=== PATIENT | female | born 1995 | race Caucasian/White ===

== ENCOUNTER 2022-06-05 13:51 | Outpatient (CLI) | payer MEDICAID, SELFPAY ==
--- NOTE | 2022-06-05 14:00 | CRLHL7_ITS ---
For Patients: As a result of the Century Cures Act, medical imaging exams and procedure reports are released immediately into your electronic medical record. You may view this report before your referring provider. If you have questions, please contact your health care provider. INDICATION: f/u renal pelves dilation COMPARISON: 03/27/2022 TECHNIQUE: Real time gonzales scale imaging of the fetus was performed as well as color Doppler and spectral Doppler analysis of the umbilical artery. FINDINGS: Sonographic imaging demonstrates a single living intrauterine gestation. Fetus demonstrates a regular cardiac rate of 137 beats per minute. Fetus has a breech position. The placenta lies posterior. Amniotic fluid volume appears normal and there is a single deepest vertical pocket: 3.5 cm. The estimated weight is 1558gm which lies at the 44th %. On the prior OB ultrasound exam dated 03/27/2022 the estimated weight was at the 26th%. BPD 84th percentile. HC 89th percentile. AC 61st percentile. FL 8th percentile. The HC/AC ratio measures 1.12 range (0.96-1.17). IMPRESSION: Progression of pelviectasis since the prior study, now measuring 8 millimeters on the left and 6 millimeters on the right. Greater than 7 millimeters in the 3rd trimester is considered abnormal. Normal amniotic fluid with single deepest pocket 3.5 cm. Sonographic gestational age 31 weeks 0 days and sonographic due date 08/07/2022. Sonographic age 6 days ahead of the clinical age. Estimated weight 44th percentile. Abdominal circumference 61st percentile. Dictated by Barak Myers MD @ 06/05/2022 3:08:34 PM (Electronically Signed)
== END 2022-06-05 13:52 | disposition home or self-care (01) ==
LOC: US 13:53
PROVIDERS: Visit Provider Registered Nurse
DX: Z34.03 Encounter for supervision of normal first pregnancy, third trimester (principal); Z3A.30 30 weeks gestation of pregnancy
CPT/HCPCS: 76815; 76816

== ENCOUNTER 2022-06-18 10:06 | Outpatient (CLI) | payer MEDICAID, SELFPAY ==
[2022-06-18 13:55] LABS: Amphetamine Screen Urine Negative (Negative); Barbiturate Screen Urine Negative (Negative); Benzodiazepines Screen Urine Negative (Negative); Cannabinoid Screen Urine Negative (Negative); Cocaine Screen Urine Negative (Negative); Methadone Screen Urine Negative (Negative); Methamphetamines Screen Urine Negative (Negative); Opiate Screen Urine Negative (Negative); Oxycodone Screen Urine Negative (Negative); Phencyclidine Screen Urine Negative (Negative)
== END 2022-06-18 10:07 | disposition home or self-care (01) ==
LOC: NFLDREF 10:34
PROVIDERS: Visit Provider Advanced Practice Midwife
DX: Z34.90 Encounter for supervision of normal pregnancy, unspecified, unspecified trimester (principal)
CPT/HCPCS: 80306

== ENCOUNTER 2022-07-16 10:28 | Outpatient (CLI) | payer MEDICAID, SELFPAY ==
[2022-07-17 11:37] LABS: Strep B DNA Probe NEGATIVE (Negative)
== END 2022-07-16 10:29 | disposition home or self-care (01) ==
LOC: NFLDREF 10:28
PROVIDERS: Visit Provider Advanced Practice Midwife
DX: Z34.93 Encounter for supervision of normal pregnancy, unspecified, third trimester (principal); Z3A.36 36 weeks gestation of pregnancy
CPT/HCPCS: 87081; 87653

== ENCOUNTER 2022-07-26 09:06 | Outpatient (CLI) | payer MEDICAID, SELFPAY ==
--- NOTE | 2022-07-26 09:15 | CRLHL7_ITS ---
For Patients: As a result of the Century Cures Act, medical imaging exams and procedure reports are released immediately into your electronic medical record. You may view this report before your referring provider. If you have questions, please contact your health care provider. INDICATION: GROWTH AND FLUID, RENAL PELVIS DILATION COMPARISON: 06/05/2022 TECHNIQUE: Real time gonzales scale imaging of the fetus was performed as well as color Doppler and spectral Doppler analysis of the umbilical artery. FINDINGS: Sonographic imaging demonstrates a single living intrauterine gestation. Fetus demonstrates a regular cardiac rate of 149 beats per minute. Fetus has a brianna breech position. The placenta lies posterior fundal. Amniotic fluid volume appears normal and there is a single deepest vertical pocket: 5.3 cm. The estimated weight is 3703gm which lies at the 93rd %. On the prior OB ultrasound exam dated 06/05/2022 the estimated weight was at the 44th%. BPD/HC greater than 97th percentile. AC 94th percentile. FL 30th percentile. The HC/AC ratio measures 1.05 range (0.88-1.06). IMPRESSION: Progression of bilateral pelviectasis measuring 1.2 cm on the left and 1.1 cm on the right. Normal amniotic fluid. evaluation of the kidneys recommended with VCUG and Mag 3 Lasix exam. Sonographic gestational age 38 weeks 5 days and sonographic due date 08/04/2022. Sonographic age is 9 days ahead of the clinical age. Estimated weight 93rd percentile. Abdominal circumference 94th percentile. BPD/HC greater than 97th percentile. Dictated by Barak Myers MD @ 07/26/2022 10:07:21 AM (Electronically Signed)
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
== END 2022-07-26 09:07 | disposition home or self-care (01) ==
LOC: US 09:07
PROVIDERS: Visit Provider Advanced Practice Midwife
DX: O35.8XX0 Maternal care for other (suspected) fetal abnormality and damage, not applicable or unspecified (principal); Z3A.38 38 weeks gestation of pregnancy
CPT/HCPCS: 76816

== ENCOUNTER 2022-07-30 10:08 | Outpatient (CLI) | payer MEDICAID, SELFPAY ==
[2022-07-30 08:23] VITALS: BP 126/79; PULSE 84
[2022-07-30] MEDS: TERBUTALINE 1 MG/ML INJ 0.25 MG SUBCUT (09:05)
[2022-07-30 09:09] LABS: Appearance Urine Clear (Clear); Bilirubin Urine Negative (Negative); Blood Urine Negative (Negative); Color Urine Yellow (Yellow); Glucose Urine Negative (Negative); Ketones Urine Negative (Negative); Leukocyte Esterase Urine 1+ (Negative); Nitrite Urine Negative (Negative); Protein Urine Negative (Negative); Urobilinogen Urine 0.2 (0.2-1.0)
--- NOTE | 2022-07-30 09:42 | PM.OBLDTN ---
OB - Triage/Final Diagnosis Visit Information Narrative: The patient is a 27 year old 1 para 0 woman at 37 5/7 weeks gestation who presents for external cephalic version. She was found to have fetus in breech presentation last week in clinic . We discussed risks of external cephalic version, including discomfort, placental abruption and nonreassuring status, labor, rupture of membranes, and possibly failure. Consent form reviewed with and signed by patient. Comments/Additional reasons for admission: PREPROCEDURE DIAGNOSIS: Brianna breech presentation POSTPROCEDURE DIAGNOSIS: Brianna breech presentation PROCEDURE: External cephalic version, unsuccessful OBSTETRICIANS: Anushka Corbett MD and Davina Callahan MD FINDINGS: On bedside ultrasound prior to procedure, fetus was found to be in brianna breech presentation with back to maternal right. Fluid was grossly adequate. At termination of procedure, the same findings were noted. COMPLICATIONS: None PROCEDURE IN DETAIL: Patient was given a single dose of terbutaline 10 minutes prior to attempted external cephalic version. NST prior to procedure was reactive and reassuring. Her belly was coated with mineral oil. Two attempts were made to institute of forward roll of the fetus by pushing on maternal abdomen and elevating the breech out of the pelvis. One final attempt was made to institute a backward roll. head was mobile, but did not move past oblique, head up position. heart rate was always noted to be in normal range. Patient tolerated procedure Gracie presently well. She is to return to clinic in a week to discuss planning for primary delivery. Evaluation Laboratory results: Laboratory Tests 07/30/22 07/30/22 Range/Units 08:49 08:49 Urine Color Pending Urine Appearance Pending Urine pH Pending Ur Specific [place] Pending Urine Protein Pending Urine Glucose (UA) Pending Urine Ketones Pending Urine Blood Pending Urine Nitrite Pending Urine Bilirubin Pending Urine Urobilinogen Pending Ur Leukocyte Esterase Pending Vaginal Trichomonas Pending Vaginal Yeast Pending Vaginal Clue Cells Pending Vital signs: Vital Signs - 24 hr 07/30/22 08:23 Pulse Rate 84 Blood Pressure 126/79 Fetus (Single) Heart Rate Baseline: 140 Collections Rep Variability: Moderate (11-25) Monitor Accelerations: Episodic Monitor Decelerations: None
[2022-07-30 09:49] LABS: Clue Cells <20% Clue Cells Seen (None Seen); Trichomonas No Trichomonas Seen (None Seen); Yeast Yeast Seen (None Seen)
[2022-07-30 09:51] LABS: RBC Urine 0-2 (0-2)
[2022-07-30 09:52] LABS: Bacteria Urine Many; Squamous Epithelial Cell Urine Few (None-Few)
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
--- NOTE | 2022-07-30 11:20 | PC.OBNST ---
NST Note NST Note Start: 07/30/22 08:59 Freq: ONCE Status: Active Protocol: Document 07/30/22 10:50 [facility] (Rec: 07/30/22 11:19 [facility] [id number]) NST Note 1 Para (# of births) 0 EDC 08/13/22 Gestational Age In Weeks & Days 38 Weeks & 0 Days Patient Presented with Complaint(s) of Other Other Complaints ECV Reactive Yes Appropriate for Gestational Age Yes ASHVIN Antoine Date 07/30/22 Reactive Yes Appropriate for Gestational Age Yes ASHVIN Wright RN Date 07/30/22 OB NST charge No Complete NST Note via Write Note Yes The provider's electronic signature indicates the NST is reactive/appropriate for gestational age. *Note to provider: If an addendum is required, open the patient's chart and click on the note under the Nurse/Allied Health tab.
--- NOTE | 2022-07-30 18:00 | PC.OBNST ---
NST Note NST Note Start: 07/30/22 08:59 Freq: ONCE Status: Complete Protocol: Document 07/30/22 10:50 [facility] (Rec: 07/30/22 11:19 [facility] [id number]) NST Note 1 Para (# of births) 0 EDC 08/13/22 Gestational Age In Weeks & Days 38 Weeks & 0 Days Patient Presented with Complaint(s) of Other Other Complaints ECV Reactive Yes Appropriate for Gestational Age Yes ASHVIN Antoine Date 07/30/22 Reactive Yes Appropriate for Gestational Age Yes ASHVNI Wright RN Date 07/30/22 OB NST charge No Complete NST Note via Write Note Yes The provider's electronic signature indicates the NST is reactive/appropriate for gestational age. *Note to provider: If an addendum is required, open the patient's chart and click on the note under the Nurse/Allied Health tab.
== END 2022-07-30 10:50 | disposition home or self-care (01) ==
LOC: OB CLI 10:09 → OB 10:10
PROVIDERS: Visit Provider Obstetrics & Gynecology
DX: O32.1XX3 Maternal care for breech presentation, fetus 3 (principal); Z3A.38 38 weeks gestation of pregnancy
CPT/HCPCS: 59025; 59412; 76815; 81003; 81015; 84112; 87086; 87210; 99211; 99213; J3105

== ENCOUNTER 2022-08-11 14:03 | Outpatient (CLI) | payer MEDICAID, SELFPAY ==
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
[2022-08-11 14:13] VITALS: BP 135/89; PULSE 133
[2022-08-11 14:25] VITALS: RESP 18; TEMP 36.8
[2022-08-11 14:32] VITALS: PULSE 118; O2SAT 98
[2022-08-11 15:12] LABS: Amnisure Rom* Negative
--- NOTE | 2022-08-11 15:58 | P.OBHP_ITS ---
OB - H&P; HPI Antepartum History of Present Illness Time Seen by Provider: 15:58 Date Seen: 08/11/22 Chief complaint: Vaginal leaking Narrative: Irene Braga is a 27 year old female 0 0 0 at 38 weeks 5 days. Patient states that she felt wetness on her underwear noted slight vaginal bleeding when she was wiping. Denies because fluid. She states she had intercourse earlier this morning and has had irregular contractions after intercourse. Currently she is comfortable and does not endorse any contraction. Patient reports that fetus is very active. Denies SOB, CP, headaches, vision changes, right upper quadrant, or nausea and vomiting. Patient states that she has a clinic appointment on SaturdayAugust 07 and her is scheduled for August 20. Meds Home Medications and Allergies Home Medications Medication Instructions Recorded Confirmed Type docosahexaenoic acid 200 mg 200 mg PO DAILY 05/22/22 08/11/22 History capsule ( DHA) Fish Oil (with DHA-EPA) 07/30/22 08/06/22 History Allergies Allergy/AdvReac Type Severity Reaction Status Date / Time amoxicillin Allergy Unknown Verified 08/06/22 09:22 OB - H&P: Exam Physical Exam: Vital signs: Temp Pulse Resp BP Pulse Ox 98.3 F 133 H 18 135/89 98 08/11/22 14:25 08/11/22 14:13 08/11/22 14:25 08/11/22 14:13 08/11/22 14:32 Narrative: EXAM: Vital Signs: Pulse in the 90s during my examination. Heart Tones: 140s with accels and moderate variability. Christoval: Irregular contractions Presentation: Brianna breech SVE: 1/thick/high Sterile spec exam: Trace blood mixed with mucus plug noted at cervical os. OB - A/P Antepartum Assessment and Plan (1) Breech presentation: Status: Acute Plan Rule out ROM at greater than 34 weeks - patient noted having wet underwear with scant vaginal spotting after intercourse this a.m. - Amniosure: negative - sterile speculum exam: Negative for pooling in the vaginal vault, negative cough, negative ferning. Nitrazine test not obtainable. SDP 5.83 cm - SVE: 1/ thick/high Wellbeing US: Presentation brianna breech/Placental location posterior fundal/SDP 5.83 cm NST: Reactive and reassuring with baseline of 140s, multiple accels, and moderate variability Christoval: Irregular contractions Delivery plan: Planned primary on August 20 for breech presentation status post failed ECV. Dispo: Patient is not ruptured. Irregular contractions nonpalpable to patient currently. Positive movements. Discussed with patient that it is common to have scant vaginal bleeding and contractions after intercourse during this stage of . Strong labor precautions reviewed with patient and her partner. Advised patient to come to triage should she have loss of fluid, vaginal bleeding, regular contractions, or decreased movement. Given that patient is very close to term, advised patient to stop eating and drinking should she feel she needs to present to triage. Patient reports he lives 5 minutes away from the hospital and has good follow-up. Stable and appropriate for discharge.
--- NOTE | 2022-08-11 16:24 | PC.OBNST ---
NST Note NST Note Start: 08/11/22 14:14 Freq: ONCE Status: Active Protocol: Document 08/11/22 16:23 [facility] (Rec: 08/11/22 16:24 JRMarco [id number]) NST Note 1 Para (# of births) 0 EDC 08/20/22 Gestational Age In Weeks & Days 38 Weeks & 5 Days Patient Presented with Complaint(s) of Contractions/cramping,Leaking fluid Reactive Yes Appropriate for Gestational Age Yes RN Shahla Marino RN Date 08/11/22 Reactive Yes Appropriate for Gestational Age Yes ASHVIN Moran RN Date 08/11/22 OB NST charge Yes Complete NST Note via Write Note Yes The provider's electronic signature indicates the NST is reactive/appropriate for gestational age. *Note to provider: If an addendum is required, open the patient's chart and click on the note under the Nurse/Allied Health tab.
--- NOTE | 2022-08-11 16:25 | PC.OBNST ---
NST Note NST Note Start: 08/11/22 14:14 Freq: ONCE Status: Active Protocol: Document 08/11/22 16:23 [facility] (Rec: 08/11/22 16:24 JRMarco [id number]) NST Note 1 Para (# of births) 0 EDC 08/20/22 Gestational Age In Weeks & Days 38 Weeks & 5 Days Patient Presented with Complaint(s) of Contractions/cramping,Leaking fluid Reactive Yes Appropriate for Gestational Age Yes RN Shahla Marino RN Date 08/11/22 Reactive Yes Appropriate for Gestational Age Yes ASHVIN Moran RN Date 08/11/22 OB NST charge Yes Complete NST Note via Write Note Yes The provider's electronic signature indicates the NST is reactive/appropriate for gestational age. *Note to provider: If an addendum is required, open the patient's chart and click on the note under the Nurse/Allied Health tab.
== END 2022-08-11 16:20 | disposition home or self-care (01) ==
LOC: OB CLI 14:05 → OB 14:06
PROVIDERS: Visit Provider Obstetrics & Gynecology
DX: O47.03 False labor before 37 completed weeks of gestation, third trimester (principal); Z3A.38 38 weeks gestation of pregnancy
CPT/HCPCS: 59025; 76815; 84112; 99213

== ENCOUNTER 2022-08-13 17:27 | Inpatient (IN) | payer MEDICAID, SELFPAY ==
[2022-08-13] VITALS (20 sets, daily range): BP systolic 126–148; BP diastolic 52–96; PULSE 63–107; RESP 14–16; TEMP 36.7–36.8; O2SAT 96–98; BMI 26.6
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
--- NOTE | 2022-08-13 16:14 | W.PM.LDBA ---
Subjective History of Present Illness Time Seen by Provider: 16:14 Date Seen: 08/13/22 Narrative: Patient is being admitted to Labor and Delivery for spontaneous onset of labor. She is a 27 year old at 40 0/7 weeks gestation. Her full history and physical was dictated by Britney Monahan on 07/26/2022. Please see this for details. She has a fetus in a known breech presentation, and had an attempted external cephalic version on 07/30/2022, which was unsuccessful. She has a delivery scheduled for next Saturday. She complains of uterine contractions that began about 0730 this morning. Over the last 2 hours they have become more intense and regular. Her fetus remains active. She last had anything to eat or drink around noon, at which point she had a couple of grapes and a sip of water. She denies leakage of fluid, vaginal bleeding, or unusual vaginal discharge. OB - H&P: Exam Physical Exam: Vital signs: Temp Pulse Resp BP 98.2 F 67 14 134/80 08/13/22 15:31 08/13/22 15:32 08/13/22 15:31 08/13/22 15:32 Narrative: A limited OB ultrasound was performed at the bedside with a transabdominal transducer. A single, living, intrauterine gestation was identified in a brianna breech presentation. Constitutional: Constitutional: no acute distress and average body habitus Routine HEENT Exam: Head: Present normal inspection Routine Neck Exam: Neck: Present full ROM Routine Abdominal Exam: Comments: Gravid, size consistent with term gestation Detailed Labor and Delivery Exam: Patient Gravid: yes Dilation (cm): 2 Effacement (%): 70 Cervix position: anterior Consistency: soft Contraction frequency (min): 2 Contraction intensity: Moderate Comments: Cervical exam per nursing staff Routine Extremities Exam: Extremities: Present normal inspection; Absent pedal edema OB - Problem Based A/P Additional Plan (1) Breech presentation: Status: Acute (2) Spontaneous onset of labor: Status: Acute Plan Informed consent was obtained for primary low transverse section under spinal anesthesia. Preoperative labs: Hemoglobin, type and screen. We reviewed the anticipated postoperative course. The patient's questions answered to the best my ability. Delivery/Labor/Induction Plan Plan: Section
[2022-08-13] MEDS: LACTATED RINGERS 1000 ML 1,000 ML IV ×3 (16:20→20:08)
[2022-08-13 16:46] LABS: Basophils Percent Auto 0.2 % (0.0-3.0); Eosinophils Percent Auto 0.6 % (0.0-7.0); Hemoglobin* 12.8 gm/dL (12.0-16.0); Immature Granulocytes Abs Auto 0.07 K/uL (0.00-0.30); Mean Corpuscular HGB Conc 35 gm/dL (32-36); Mean Corpuscular Hemoglobin 31 pg (26-34); Mean Corpuscular Volume 89 fL (80-100); Monocytes Percent Auto 7.6 % (0.0-11.0); Platelet Count* 220 K/uL (140-440); RDW Coefficient of Variation % 12.6 % (11.5-15.5); Red Blood Count 4.17 m/uL (4.00-5.20); White Blood Count* 12.71 K/uL (4.50-11.00)
[2022-08-13 16:52] LABS: Slide Review Reflex No
[2022-08-13] MEDS: CEFAZOLIN 2 GM INJ IVP (17:05)
[2022-08-13 17:09] LABS: SARS PCR* Negative SARS-CoV-2 (Negative)
--- NOTE | 2022-08-13 18:12 | P.GYNPRC_ITS ---
Procedure Note Date Seen: 08/13/22 Procedure Details: PREOPERATIVE DIAGNOSES: 1. Intrauterine at 40 0/7 weeks' gestation. 2. Spontaneous onset of labor. 3. Breech presentation. POSTOPERATIVE DIAGNOSES: 1. Intrauterine at 40 0/7 weeks' gestation. 2. Spontaneous onset of labor. 3. Breech presentation. NAME OF PROCEDURE: Primary low transverse section. SURGEON: Preethi. ANESTHESIA: Spinal. COMPLICATIONS: None. ESTIMATED BLOOD LOSS: 830 mL. DRAINS: Marte to gravity. FINDINGS: Live-born male , brianna breech presentation, Apgars 8 and 9 at 1 and 5 minutes respectively. weight 8 lb 8 oz. Normal appearing uterus, tubes, and ovaries. Umbilical cord length: 37 cm. PROCEDURE: After obtaining informed consent, the patient was taken to the operating room where spinal anesthesia was obtained and found to be adequate. She was prepared and draped in the normal sterile fashion in the dorsal supine position with a leftward tilt. A Pfannenstiel skin incision was made with a scalpel. This incision was carried down to the underlying layer of fascia with the Bovie. The tissues were noted to be quite edematous. The fascia was incised in the midline and the incision extended laterally. The superior and inferior aspects of the fascial incision were grasped with Corinne clamps, elevated and the underlying rectus muscles dissected off sharply and with electrocautery. The rectus muscles were then in the midline. The Al exis O retractor was then placed into the incision. The lower uterine segment was then incised in a transverse fashion with the scalpel. Upon entry into the uterus, clear amniotic fluid was noted. The uterine incision was extended laterally with blunt finger fractionation. The 's breech was delivered atraumatically, followed by the legs, torso, arms, head, while maintaining flexion. The nose and mouth were suctioned with the bulb suction. The cord was doubly clamped and cut after 32nd delay, and the infant was handed off the field to Edwige Ruth PA-C for evaluation. The placenta was delivered spontaneously with umbilical cord traction and fundal massage. The uterus was cleared of all clots and debris. The uterine incision was reapproximated in a running locking fashion with a 0 chromic suture. A 2nd layer of the same suture was used to imbricate in horizontal fashion. The gutters were irrigated and suctioned. All instruments and retractors were removed. The anterior peritoneum was reapproximated in a running fashion with a 3-0 Vicryl suture. The subfascial tissues were carefully inspected and hemostasis assured. The fascia was reapproximated in a running f ashion with a looped 0 Maxon suture. The subcutaneous tissues were copiously irrigated. Hemostasis was assured. The skin was closed in a subcuticular fashion with 4-0 Vicryl. Surgical dressing was applied. The patient tolerated the procedure well. Sponge, lap, needle, and instrument counts were reported as correct x2. The patient was taken to the recovery room, awake, and in stable condition. She did receive 2 grams of IV Ancef preoperatively.
--- NOTE | 2022-08-13 18:35 | W.PM.NB ---
Nerve Block Nerve Block Time Seen by Provider: 18:20 Date Seen: 08/13/22 Type of block requested by surgeon for post-operative analgesia: TAP Side: bilateral Time out performed: Yes Verification of patient name: Yes Verification of date of : Yes Site marking: not applicable Name of person performing procedure: gina Continuous monitoring Was continuous monitoring of O2 sat, B/P, manager of clinical, recorded every 15 minutes?: Yes Procedure Checklist: sterile prep, needles and gloves Ultrasound guided. Images saved: Yes Medications given in 5ml increments after negative aspiration: Marcaine %: 0.25 mL: 30 Needle gauge: 20 and Exparel mL: 10 Needle gauge: 20 Patient tolerated procedure well: Yes Block Charges Block Charge (with Pro Fee): TAP Bilateral Use of Ultrasound Machine for Block: Yes- US Guidance/pain block
--- NOTE | 2022-08-13 18:37 | W.ANESCHARGE ---
Anesthesia Charges Start Date/Time Anesthesia Start Date: 08/13/22 Anesthesia Start Time: 16:54 Stop Date/Time Anesthesia Stop Date: 08/13/22 Anesthesia Stop Time: 18:29 Summary Emergency: Yes
[2022-08-13 21:37] LABS: Hemoglobin* 10.6 gm/dL (12.0-16.0)
[2022-08-13 21:55] LABS: Amphetamine Screen Urine Negative (Negative); Benzodiazepines Screen Urine Negative (Negative); Buprenorphine Screen Urine Negative (Negative); Cannabinoid Screen Urine Negative (Negative); Cocaine Screen Urine Negative (Negative); Methadone Screen Urine Negative (Negative); Opiate Screen Urine Negative (Negative); Oxycodone Screen Urine Negative (Negative); Phencyclidine Screen Urine Negative (Negative); Tricyclic Antidepressant Urine Negative (Negative)
[2022-08-13 21:56] LABS: Barbiturate Screen Urine POSITIVE (Negative); Methamphetamines Screen Urine POSITIVE (Negative)
[2022-08-14] VITALS (17 sets, daily range): BP systolic 115–132; BP diastolic 74–88; PULSE 68–73; RESP 16; TEMP 36.8–36.9; O2SAT 94–98
[2022-08-14] MEDS: KETOROLAC 30 MG/ML inj IVP ×4 (00:28→19:27)
[2022-08-14 07:25] LABS: Hemoglobin* 9.4 gm/dL (12.0-16.0)
--- NOTE | 2022-08-14 09:29 | PM.OBPNCS1 ---
OB - PN: A/P Assessment and Plan (1) Breech presentation: Status: Acute (2) Spontaneous onset of labor: Status: Acute Plan 1. Primary for breech presentation. 2. Routine cares.? 3. Anticipate discharge tomorrow or per patient preference.? Plan day: 1 Plan: routine postop care OB - PN: Subj Subjective Date Seen: 08/14/22 Patient comments: no complaints, pain well controlled and tolerating diet status: and doing well feeding status: exclusively Narrative: The patient feels well.? The pain is well controlled with current medications.? She has no new complaints.? Urinary output is adequate and she is voiding without difficulty.? Has a good appetite, is tolerating a general diet, is passing not flatus, and has not had a bowel movement.? Has?small amount of rubra lochia.? She is ambulating well.?Denies feeling light headed, dizzy or unexpected fatigue. PO iron prescribed. OB - PN: Obj Exam Physical Exam: Vital signs: Temp Pulse Resp BP Pulse Ox O2 Del Method 98.3 F 68 16 132/88 97 08/14/22 07:50 08/14/22 07:50 08/14/22 07:50 08/14/22 07:50 08/14/22 07:50 08/14/22 07:50 Constitutional: Constitutional: no acute distress Routine HEENT Exam: Head: Present normal inspection Eye: Present normal appearance Routine Neck Exam: Neck: Present full ROM Routine Respiratory Exam: Respiratory: Present CTA bilaterally Routine Cardiovascular Exam: Cardiovascular: Present RRR Routine Abdominal Exam: Abdominal: Present soft and tenderness Fundus: Present firm Detailed Abdominal Exam: Bowel sounds: hypoactive Routine Rectal Exam: Patient deferred: visual exam and digital exam Routine Extremities Exam: Extremities: Present full ROM Routine Back/Spine/Pelvis Exam: Back/Spine: Present full ROM Routine Skin Exam: Skin: Present normal color (slightly pale) Routine Neurological Exam: Neurological: Present alert and oriented X3 Routine Psychiatric Exam: Psychiatric: Present normal affect Wound Management: Examination: Present dressed, clean, dry and intact Urinary Catheter Management: Urethral: Cath placed during this visit: yes, but has since been removed by the nurse Urethral indwelling: No Reason for continuing: surgical procedure Insertion date: 08/13/22 Removal date: 08/14/22 Removal time: 07:50 OB - PN: Obj Data Labs Labs: Laboratory Results - last 24 hr 08/13/22 08/13/22 08/13/22 16:08 16:20 16:20 WBC 12.71 H RBC 4.17 Hgb 12.8 Cancelled Hct 37.0 MCV 89 MCH 31 MCHC 35 RDW Coeff of Darian 12.6 Plt Count 220 Neut % (Auto) 75.0 H Lymph % (Auto) 16.0 L [place] % (Auto) 7.6 Eos % (Auto) 0.6 Baso % (Auto) 0.2 Neut # (Auto) 9.50 H Lymph # (Auto) 2.00 [place] # (Auto) 1.00 H Eos # (Auto) 0.10 Baso # (Auto) 0.00 Abs Immat Gran (auto) 0.07 Urine Opiates Screen Ur Buprenorphine Scrn Ur Oxycodone Screen Urine Methadone Screen Ur Propoxyphene Screen Ur Barbiturates Screen U Tricyclic Antidepress Ur Phencyclidine Scrn Ur Amphetamines Screen U Methamphetamines Scrn U Benzodiazepines Scrn Urine Cocaine Screen U Marijuana (THC) Screen SARS-CoV-2 (PCR) Negative SARS-CoV-2 Blood Type Antibody Screen 08/13/22 08/13/22 08/13/22 16:20 19:00 21:30 WBC RBC Hgb 10.6 L Hct MCV MCH MCHC RDW Coeff of Darian Plt Count Neut % (Auto) Lymph % (Auto) [place] % (Auto) Eos % (Auto) Baso % (Auto) Neut # (Auto) Lymph # (Auto) [place] # (Auto) Eos # (Auto) Baso # (Auto) Abs Immat Gran (auto) Urine Opiates Screen Negative Ur Buprenorphine Scrn Negative Ur Oxycodone Screen Negative Urine Methadone Screen Negative Ur Propoxyphene Screen Negative Ur Barbiturates Screen POSITIVE A* U Tricyclic Antidepress Negative Ur Phencyclidine Scrn Negative Ur Amphetamines Screen Negative U Methamphetamines Scrn POSITIVE A* U Benzodiazepines Scrn Negative Urine Cocaine Screen Negative U Marijuana (THC) Screen Negative SARS-CoV-2 (PCR) Blood Type B Positive Antibody Screen NEGATIVE 08/14/22 07:15 WBC RBC Hgb 9.4 L Hct MCV MCH MCHC RDW Coeff of Darian Plt Count Neut % (Auto) Lymph % (Auto) [place] % (Auto) Eos % (Auto) Baso % (Auto) Neut # (Auto) Lymph # (Auto) [place] # (Auto) Eos # (Auto) Baso # (Auto) Abs Immat Gran (auto) Urine Opiates Screen Ur Buprenorphine Scrn Ur Oxycodone Screen Urine Methadone Screen Ur Propoxyphene Screen Ur Barbiturates Screen U Tricyclic Antidepress Ur Phencyclidine Scrn Ur Amphetamines Screen U Methamphetamines Scrn U Benzodiazepines Scrn Urine Cocaine Screen U Marijuana (THC) Screen SARS-CoV-2 (PCR) Blood Type Antibody Screen
[2022-08-14] MEDS: ACETAMINOPHEN 500 MG TABLET 1000 MG PO ×3 (09:33→21:57)
[2022-08-14] MEDS: DOCUSATE SODIUM 100 MG CAPSULE PO (09:33)
[2022-08-14] MEDS: FERROUS SULFATE 325 MG TABLET PO (10:37)
--- NOTE | 2022-08-14 11:26 | PC.SOCIAL ---
CP report made to Jayda Medellin at [facility] CP for positive tox screen for methamphetamine and barbiturates, likely from Phelaphradine and Ephenadrine pt. received during her cesaurean. This will be ruled out unless baby's meconium comes back with high levels.
[2022-08-14] MEDS: MEASLES,MUMPS,RUBELLA VACC/PF 1 DOSE INJ 1 EACH SUBCUT (12:58)
[2022-08-15] MEDS: KETOROLAC 30 MG/ML inj IVP (01:26)
[2022-08-15 01:30] VITALS: BP 118/80; PULSE 79; RESP 16; TEMP 36.8; O2SAT 97
[2022-08-15] MEDS: ACETAMINOPHEN 500 MG TABLET 1000 MG PO ×2 (04:02→12:43)
--- NOTE | 2022-08-15 07:31 | P.DS_ITS ---
DS: Providers Provider Time Seen by Provider: 07:05 Date Seen: 08/15/22 Date of admission: 08/13/22 17:27 Primary care physician: Not a Local Provider Admitting Clinician: Bruna Oro MD Consults: 08/13/22 19:00 Consult to Grain Operator [CONS] Routine Comment: Reason for Consult:: Substance Abuse Screening Attending Physician on discharge: Ana Brock CNM Date of Discharge: 08/15/22 Exam Const: Vital Signs, click to edit/add: Vital Signs - 24 hr 08/14/22 07:50 08/14/22 07:50 08/14/22 12:49 Temperature 98.3 F 98.3 F Pulse Rate [Pulse Oximeter] 68 69 Respiratory Rate 16 16 16 Blood Pressure [Ri ght Arm] 132/88 128/83 Pulse Oximetry 97 96 Oxygen Delivery Me thod Room Air Room Air 08/14/22 12:00 08/14/22 16:30 08/14/22 14:00 Temperature 98.5 F Pulse Rate [Pulse Oximeter] 70 Respiratory Rate 16 16 16 Blood Pressure [Ri ght Arm] 125/77 Pulse Oximetry 97 Oxygen Delivery Me thod Room Air 08/14/22 15:00 08/14/22 16:00 08/14/22 17:00 Temperature Pulse Rate [Pulse Oximeter] Respiratory Rate 16 16 16 Blood Pressure [Ri ght Arm] Pulse Oximetry Oxygen Delivery Me thod 08/15/22 01:30 Temperature 98.2 F Pulse Rate [Pulse Oximeter] 79 Respiratory Rate 16 Blood Pressure [Ri ght Arm] 118/80 Pulse Oximetry 97 Oxygen Delivery Me thod Room Air Documenting provider has reviewed patient's vital signs: yes Common normals: no apparent distress, average body habitus, oriented x3, healthy appearing, alert and well nourished General appearance: cooperative, well kempt and well developed Orientation/consciousness: Yes awake, Yes oriented to person, Yes oriented to place and Yes oriented to time HENMT: Common normals: normocephalic and external nose normal Head and scalp: normocephalic Nose: external nose normal Eye: General eye: normal appearance of both eyes Neck & C-Spine: Common normals: full ROM and supple General: normal visual inspection Cervical spine: cervical ROM normal Chest: Common normals: inspection of chest normal, palpation of chest normal and inspection of breasts normal Resp: Common normals: normal respiratory effort, no retractions, no use of accessory muscles and clear to auscultation bilaterally Effort & inspection: able to speak in complete sentences and symmetric chest movement Auscultation: clear to auscultation bilaterally Cardio: Common normals: regular rate and regular rhythm Rate: regular rate Rhythm: regular rhythm GI: Common normals: Normal to inspection, nondistended, normoactive bowel sounds present and soft to palpation Inspection: normal to inspection and other (Incision well approximated, no bleeding or discharge. Dressing [dry]) Auscultation: normoactive bowel sounds Palpation: soft and tender : Uterus: U/U and firm Lochia: small Uterus palpation: uterus nontender Back & Pelvis: Common normals: thoracic and lumbar spine normal to inspection Thoracic spine/upper back: normal to inspection and thoracic ROM normal Extremity: Common normals: full ROM General: normal exam except as noted and edema (B[place]edal, +1) Neuro: Common normals: oriented x3 Sensorium/orientation: awake, alert, oriented to person, oriented to place and oriented to time Speech: speech normal Psych: Common normals: mental status grossly normal, thought process normal, cooperative, affect normal and speech normal Appearance: grossly normal and well kempt Attitude: calm and engaged Activity/motor behavior: appropriate eye contact Speech: normal speech Thought process: normal thought process Thought content: normal thought content Attention/concentration: attention grossly intact Memory/cognition: memory grossly intact Insight: insight good Judgement: judgment good Skin: Common normals: no rashes or lesions noted General skin exam: no rashes or lesions noted DS: Data Data Completed and Pending Labs on day of discharge: Labs from last 24 hours 08/14/22 07:15 Hgb 9.4 L OB - DS: Summary Hospital Course Hospital Course: The patient is a 27 year old G1 now P1 at 40 0/7 weeks gestation that was admitted to the Center on 08/13/22 for r/t breech presentation and failed ECV. She had an uncomplicated delivery. She delivered a viable male infant, Dino. She is breast feeding and it is going well she reports. the patient has done well and said that the was much better than she expected. She has been urinating with out issue, has not had a BM yet. Lochia is small, like a period, no clots noted. Pain is well controlled with Tylenol & Ibuprofen and an occasional oxycodone. Plans to go home today. Peripartum Data Procedures: Procedures Operation Date: 08/13/22 17:15 Actual Procedure Side Surgeon p Section Bruna Oro MD complications: none [place] Infant Gender: Male Discharge Plan: Home Status at Discharge Functional status at discharge: independent ambulation Overall status at discharge: patient is progressing back to baseline Time Spent with Patient Time attestation: Total time spent providing and/or coordinating discharge services: Time spent: Less than 30 minutes Discharge Plan Discharge Disposition: Home, Self-Care Date of Admission: 08/13/22 17:27 Attending Provider on Discharge: Ana Brock Primary Care Provider: Provider,Not a Local Condition: Stable Anticipated Discharge Date/Time: 08/15/22 07:44 Discharge Medications: New acetaminophen 500 mg Tablet 1,000 mg PO Q6H PRN (Reason: Pain) Qty: 0 0RF docusate sodium 100 mg Capsule 100 mg PO BID Qty: 90 0RF ibuprofen 600 mg Tablet 600 mg PO Q6H PRN (Reason: Pain) Qty: 60 0RF oxycodone 5 mg Tablet 5 - 10 mg PO Q4H PRN (Reason: Pain) Qty: 20 0RF Continued DHA 200 mg capsule 200 mg PO DAILY Fish Oil (with DHA-EPA) Discharge Orders: Discharge Order (Routine); Ordered 08/15/22 Ordered By: Ana Brock Patient Education: OB /Breast Feeding Activity Restrictions/Additional Instructions: Discharge instructions were reviewed with the patient including signs and symptoms of infection and home going medications Lifting Restrictions: 20 pounds for 6 weeks No not submerge incision under water X 2 weeks? Nothing vaginally for 6 weeks: no tampons or intercourse Do not drive while taking narcotic pain medication(s) Off Work or School for 8 weeks Symptoms to report to doctor: * Bleeding that saturates more than one pad per hour * Passing clots larger than the size of a golf ball * Pain not relieved by prescribed medication * Fever above 100.4 degrees Fahrenheit * A foul vaginal odor * Difficulty in emotions, mood, and functions * Thoughts of hurting yourself and/or * Painful, reddened area in your breast * Any drainage, redness, or tenderness in your IV/epidural site * Severe headache that doesn't improve after taking medications * Changes in vision, including temporary loss of vision, blurred vision, and/or light sensitivity * Upper abdominal pain (usually under ribs on the right side) * Decrease in urination or painful, frequent urinating * Chest pain * Shortness of breath * Tenderness or pain with redness and/swelling in the calf(s) of your leg 2-week visit: incision check, discuss feeding concerns, review control options and screen for anxiety/depression. 6-week visit for an annual exam. consultation services are available to all mothers and babies for the first year after delivery.? To make an appointment, please call [phone]. Activity Level: Activity as Tolerated Discharge Diet: Regular Follow Up Appointments: [facility] [Provider Group] Forms: [employer] Info Instructions
[2022-08-15 08:05] VITALS: BP 132/83; PULSE 85; RESP 16; TEMP 36.9; O2SAT 96
[2022-08-15] MEDS: IBUPROFEN 600 MG TABLET PO (08:23)
[2022-08-15] MEDS: DOCUSATE SODIUM 100 MG CAPSULE PO (08:23)
[2022-08-15] MEDS: OXYCODONE 5 MG TABLET PO (12:42)
--- NOTE | 2022-08-17 09:11 | SUR.PHASEI ---
Care plan, Area and completed time charted by Janice Dwyer RN per verbal report from Mili Rice RN to Janice Dwyer RN.
--- NOTE | 2022-08-22 09:28 | PC.SOCIAL ---
Meconium results for pt.'s baby boy are negative. No social science professor needs.
--- NOTE | 2022-09-07 14:06 | PC.SOCIAL ---
Received a phone call from Jayda Medellin at [facility]. Jayda reports that the [facility] has looked into the CPS report that was filed on a positive drug screen on pt during childbirth. Jayda states that the report is being screened out due to the drug screen being a false positive due to the medications that were given during pt's labor and delivery.
== END 2022-08-15 13:00 | disposition home or self-care (01) | DRG 788 ==
LOC: OB OUT 17:27 → OB 17:27
PROVIDERS: Admitting Provider Obstetrics & Gynecology; Visit Provider Obstetrics & Gynecology
PROC: 10D00Z1 Extraction of Products of Conception, Low, Open Approach (ICD-10-PCS; CPT 59514; principal; 2022-08-13 17:00)
DX: O32.1XX0 Maternal care for breech presentation, not applicable or unspecified (principal); Z3A.40 40 weeks gestation of pregnancy; Z37.0 Single live birth
CPT/HCPCS: 01961; 36415; 64488; 76815; 76942; 80306; 85018; 85025; 86850; 86900; 86901; 87635; 99140; A9270; C9290; J0690; J1885; J2274; J2370; J2405; J2590; J2765; J3010; J3490; J7120

== ENCOUNTER 2024-06-02 13:40 | Outpatient (CLI) | payer MEDICAID, SELFPAY ==
--- OUTSIDE RECORDS SUMMARY | 2024-06-02 13:44 | XMS_ITS | Clinical Summary ---
Author Organization [facility] Address [place], [place] [address] Care Team Providers Care Career Orientation Teacher Name Role Phone Pcp, No Primary Care Provider Unavailabl e Allergies Active Allergy Reactions Criticality Noted Date Comments Amoxicillin Vomiting 04/27/2024 Medications Medication Sig Dispensed Refills Start Date End Date Status INTRAUTERINE DEVICE, IUD, IU Inject intrauterine. 08/27/2022 Active Active Problems No known active problems Encounters Date Type Department Care Team Description 05/04/2024 2:00 PM CDT Office Visit [facility] [address] [place] [address] Lavelle Barros [facility] Visit 05/04/2024 Travel 04/27/2024 3:05 PM CDT Office Visit [facility] [address] [place] [address] Elizabeth Hernández MD Physical (28 year old physical); Mental Health Issue 04/27/2024 Travel from Last 3 Months Immunizations Name Administration Dates Next Due COVID-19 vaccine ([employer] NT[employer] 30mcg/0.3mL) PFMDV 04/13/2021 DTaP 08/31/2003, 8,1997,10/01 HIB-HepB (Comvax) 02/21/1998,1997 Human Papilloma Virus Vaccine 08/06/2012, 010,02/23/2010 Inactivated Polio Vaccine 08/31/2003,12/06/1998 MMR 08/31/2003,12/06/1998 Meningococcal Vaccine (Menactra) 02/23/2010 Tdap 06/18/2022 Varicella Vaccine 07/19/2010,12/06/1998 Social History Tobacco Use Types Packs/Day Years Used Date Smoking Tobacco: Former Cigarettes Smokeless Tobacco: Never Tobacco Cessation:Counseling Given: Not Answered Alcohol Use Standard Drinks/Week Comments Yes 0 (1 standard drink = 0.6 oz pur e alcohol) PHQ-2 Answer Date Recorded PHQ-2 TOTAL SCORE 2 04/27/2024 Social Connections Answer Date Recorded Frequency of Communication with Friends and Fami ly 0 04/27/2024 Alcohol Use Answer Date Recorded How often do you have a drink containing alcohol ? 3 04/27/2024 How many drinks containing a lcohol do you have on a typical day when you are drinking? 0 04/27/2024 How often do you have five or more drinks on one occasion? 0 04/27/2024 Financial Resource Strain Answer Date R ecorded Difficulty of Paying Living Expenses 2 04/27/2024 Difficulty of Paying Living Expenses 1 04/27/2024 Food Insecurity Answer Date Recorded Worried About Running Out of Food in the Last Ye ar 2 04/27/2024 Transportation Needs Answer Date Record ed Lack of Transportation (Medical) 1 04/27/2024 Housing Stability Answer Date Recorded Unable to Pay for Housing in the Last Year 1 04/27/2024 Sex and Gender Information Value Date Recorded Sex Assigned at Not on file Gender Identity Not on file Sexual Orientation Not on file Obstetrics History Last Filed Vital Signs Vital Sign Reading Time Taken Comments Blood Pressure 118/73 04/27/2024 3:05 PM CDT Pulse 74 04/27/2024 3:05 PM CDT Temperature 37.1 ??C (98.8 ??F) 01/11/2018 4:07 PM CS T Respiratory Rate 16 01/11/2018 4:07 PM IRON PELLET TESTER Oxygen Saturation 100% 04/27/2024 3:05 PM CDT Inhaled Oxygen Concentration - - Weight 45.9 kg (101 lb 4 oz) 04/27/2024 3:05 PM CDT Height 163 cm (5' 4.17) 04/27/2024 3:05 PM CDT Body Mass Index 17.29 04/27/2024 3:05 PM CDT Plan of Treatment Upcoming Encounters Date Type Department Care Team (Late st Contact Info) Description 06/23/2024 9:00 AM CDT Office Visit [facility] [address] [place] [address] Rachna Khoury, [facility] [address] [place] [address] Health Maintenance Due Date Last Done Comments HIV for age 15-65 2012 Hepatitis C screening for ag e 18-79 2015 COVID-19 vaccine series ( season) 2023 04/13/2021 Influenza for age 9-49 07/19/2024 BMI (ht and wt on same day) for age 18+ 04/27/2025 04/27/2024, 01/11/2018 Depression screening for age 12+ 04/27/2025 04/27/2024, 01/08/2020 Pap test for age 21-65 09/25/2025 2, 09/25/2022 Tetanus booster 06/18/2032 06/18/2022 HPV series for age 9-26 Completed 08/06/20 12, 07/19/2010, 02/23/2010 Tdap Completed 06/18/2022 Pneumococcal series for age 6-64 Aged Out No longer eligible b ased on patient's age to complete this topic Procedures Procedure Name Priority Date/Time Associated Diagnosis Comments HPV THIN PREP Routine 09/25/2022 1:00 PM IRON PELLET TESTER from Last 3 Months or Most Recently Relevant to Health Maintenance Results * HPV HIGH RISK (09/25/2022 1:00 PM IRON PELLET TESTER) TYPE 16 Negative Negative 09/29/2022 12:43 PM IRON PELLET TESTER [facility] TYPE 18 Negative Negative 09/29/2022 12:43 PM IRON PELLET TESTER [facility] OTHER HIGH RISK TYPES Negative Negative 09/29/2022 12:43 PM IRON PELLET TESTER [facility] Other (Cervical) 09/25/2022 1:00 PM IRON PELLET TESTER 09/27/2022 2:09 PM IRON PELLET TESTER Narrative [facility] - 09/29/2022 12:43 PM IRON PELLET TESTER HPV types 16, 18, 31, 33, 35, 39, 45, 51, 52, 56, 58, 59, 66 and 68 DNA were undetectable or below the pre-set threshold. Methodology: Gideon Duke 4800 HPV Test February Damion LENZ [facility] [address] [place] [address], from Last 3 Months or Most Recently Relevant to Health Maintenance Care Teams Career Orientation Teacher Relationship Specialty Start Date End Date Pcp, No . PCP - General 01/11/18
--- OUTSIDE RECORDS SUMMARY | 2024-06-02 13:44 | XMS_ITS | Clinical Summary ---
Author Organization [facility] Address [address] [place] [address]. [place] [address] Care Team Providers Care Sql Report Analyst Name Role Phone No Ref-Primary, Physician Primary Care Provider Allergies No known active allergies Social History Tobacco Use Types Packs/Day Years Used Date Smoking Tobacco: Never Assessed Adolescent Education Answer Date Record ed Getting School Help Needed Not on file 09/04 Sex and Gender Information Value Date Recorded Sex Assigned at Not on file Gender Identity Not on file Sexual Orientation Not on file Last Filed Vital Signs Vital Sign Reading Time Taken Comments Blood Pressure 116/60 01/11/2018 4:37 PM FOOD PRODUCTS TESTER Pulse 81 01/11/2018 4:37 PM FOOD PRODUCTS TESTER Temperature 37.1 ??C (98.7 ??F) 01/11/2018 4:37 PM CS T Respiratory Rate 18 01/11/2018 4:37 PM FOOD PRODUCTS TESTER Oxygen Saturation 98% 01/11/2018 4:37 PM FOOD PRODUCTS TESTER Inhaled Oxygen Concentration - - Weight 54.4 kg (120 lb) 01/11/2018 4:37 PM FOOD PRODUCTS TESTER Height 165.1 cm (5' 5) 01/11/2018 4:37 PM FOOD PRODUCTS TESTER Body Mass Index 19.97 01/11/2018 4:37 PM FOOD PRODUCTS TESTER Plan of Treatment Not on file Care Teams Sql Report Analyst Relationship Specialty Start Date End Date No Ref-Primary, Physician PCP - General 01/11/18
--- OUTSIDE RECORDS SUMMARY | 2024-06-02 13:44 | XMS_ITS | Referral Summary ---
Author Organization [facility] Address [address] [place] [address]. [place] [address] Care Team Providers Care Rcp Name Role Phone No Ref-Primary, Physician Primary [...] Comments Blood Pressure 116/60 01/11/2018 4:37 PM WINEMAKER Pulse 81 01/11/2018 4:37 PM WINEMAKER Temperature 37.1 ??C (98.7 ??F) 01/11/2018 4:37 PM CS T Respiratory Rate 18 01/11/2018 4:37 PM WINEMAKER Oxygen Saturation 98% 01/11/2018 4:37 PM WINEMAKER Inhaled Oxygen Concentration - - Weight 54.4 kg (120 lb) 01/11/2018 4:37 PM WINEMAKER Height 165.1 cm (5' 5) 01/11/2018 4:37 PM WINEMAKER Body Mass Index 19.97 01/11/2018 4:37 PM WINEMAKER Plan of Treatment Not on file Care Teams Rcp Relationship Specialty Start Date End Date No Ref-Primary, Physician PCP - General 01/11/18
[2024-06-02 19:22] LABS: Chlamydia DNA Amplified* NOT DETECTED (No Detected); GC DNA Amplified* NOT DETECTED (No Detected)
== END 2024-06-02 13:41 | disposition home or self-care (01) ==
LOC: NFLDREF 13:41
PROVIDERS: PCP Physician Assistant; Visit Provider Physician Assistant
DX: Z11.3 Encounter for screening for infections with a predominantly sexual mode of transmission (principal)
CPT/HCPCS: 87491; 87591

== ENCOUNTER 2024-07-09 05:48 | Emergency (ER) | payer MEDICAID, SELFPAY ==
[2024-07-09 06:05] VITALS: BP 118/69; PULSE 85; RESP 20; TEMP 36.8; O2SAT 99; BMI 18.3
[2024-07-09 06:40] LABS: PCR FLU A Negative PCR FLU A (Negative); PCR FLU B Negative PCR FLU B (Negative); PCR RSV Negative PCR RSV (Negative); SARS PCR* Negative SARS-CoV-2 (Negative)
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
--- OUTSIDE RECORDS SUMMARY | 2024-07-09 07:38 | XMS_ITS | Clinical Summary ---
Author Organization [facility] Address [place], [place] [address] Care Team Providers Care Playground Monitor Name Role Phone Pcp, No Primary Care Provider Unavailabl e Allergies Active Allergy Reactions Criticality Noted Date Comments Amoxicillin Vomiting 04/27/2024 Medications Medication Sig Dispensed Refills Start Date End Date Status INTRAUTERINE DEVICE, IUD, IU Inject intrauterine. 08/27/2022 Active Active Problems No known active problems Encounters Date Type Department Care Team Description 07/02/2024 3:00 PM CDT Office Visit [facility] [address] [place] [address] Lavelle Barros [facility] Visit 07/02/2024 Travel 05/04/2024 2:00 PM CDT Office Visit [facility] [address] [place] [address] Lavelle Barros [facility] Visit 05/04/2024 Travel 04/27/2024 3:05 PM CDT Office Visit [facility] [address] [place] [address] Elizabeth Hernández MD Physical (28 year old physical); Mental Health Issue 04/27/2024 Travel from Last 3 Months Immunizations Name Administration Dates Next Due COVID-19 vaccine ([employer] NTech 30mcg/0.3mL) VICTOR MANUEL SILVA 04/13/2021 DTaP 08/31/2003, 8,1997,10/01 HIB-HepB (Comvax) 02/21/1998,1997 [...] T Respiratory Rate 16 01/11/2018 4:07 PM CIRCULATION MAN Oxygen Saturation 100% 04/27/2024 3:05 PM CDT Inhaled Oxygen Concentration - - Weight 45.9 kg (101 lb 4 oz) 04/27/2024 3:05 PM CDT Height 163 cm (5' 4.17) 04/27/2024 3:05 PM CDT Body Mass Index 17.29 04/27/2024 3:05 PM CDT Plan of Treatment Health Maintenance Due Date [...] HPV THIN PREP Routine 09/25/2022 1:00 PM CIRCULATION MAN from Last 3 Months or Most Recently Relevant to Health Maintenance Results * HPV HIGH RISK (09/25/2022 1:00 PM CIRCULATION MAN) TYPE 16 Negative Negative 09/29/2022 12:43 PM CIRCULATION MAN [facility] TYPE 18 Negative Negative 09/29/2022 12:43 PM CIRCULATION MAN [facility] OTHER HIGH RISK TYPES Negative Negative 09/29/2022 12:43 PM CIRCULATION MAN [facility] Other (Cervical) 09/25/2022 1:00 PM CIRCULATION MAN 09/27/2022 2:09 PM CIRCULATION MAN [facility] - 09/29/2022 12:43 PM CIRCULATION MAN HPV types 16, 18, 31, 33, 35, 39, 45, 51, 52, 56, 58, 59, 66 and 68 DNA were undetectable or below the pre-set threshold. Methodology: Gideon Duke 4800 HPV Test February Damion LENZ MICROBIOLOGY [facility] [address] [place] [address], from Last 3 Months or Most Recently Relevant to Health Maintenance Care Teams Playground Monitor Relationship Specialty Start Date End Date Pcp, No . PCP - General 01/11/18
--- OUTSIDE RECORDS SUMMARY | 2024-07-09 07:38 | XMS_ITS | Clinical Summary ---
Author Organization [facility] Address [address] [place] [address]. [place] [address] Care Team Providers Care Embroidery Specialist Name Role Phone No Ref-Primary, Physician Primary [...] Comments Blood Pressure 116/60 01/11/2018 4:37 PM GROUND CREW LINESMAN Pulse 81 01/11/2018 4:37 PM GROUND CREW LINESMAN Temperature 37.1 ??C (98.7 ??F) 01/11/2018 4:37 PM CS T Respiratory Rate 18 01/11/2018 4:37 PM GROUND CREW LINESMAN Oxygen Saturation 98% 01/11/2018 4:37 PM GROUND CREW LINESMAN Inhaled Oxygen Concentration - - Weight 54.4 kg (120 lb) 01/11/2018 4:37 PM GROUND CREW LINESMAN Height 165.1 cm (5' 5) 01/11/2018 4:37 PM GROUND CREW LINESMAN Body Mass Index 19.97 01/11/2018 4:37 PM GROUND CREW LINESMAN Plan of Treatment Not on file Care Teams Embroidery Specialist Relationship Specialty Start Date End Date No Ref-Primary, Physician PCP - General 01/11/18
--- OUTSIDE RECORDS SUMMARY | 2024-07-09 07:38 | XMS_ITS | Referral Summary ---
Author Organization [facility] Address [address] [place] [address]. [place] [address] Care Team Providers Care Armed Security Guard Name Role Phone No Ref-Primary, Physician Primary [...] Comments Blood Pressure 116/60 01/11/2018 4:37 PM CLASS A REGIONAL TRUCK DRIVER Pulse 81 01/11/2018 4:37 PM CLASS A REGIONAL TRUCK DRIVER Temperature 37.1 ??C (98.7 ??F) 01/11/2018 4:37 PM CS T Respiratory Rate 18 01/11/2018 4:37 PM CLASS A REGIONAL TRUCK DRIVER Oxygen Saturation 98% 01/11/2018 4:37 PM CLASS A REGIONAL TRUCK DRIVER Inhaled Oxygen Concentration - - Weight 54.4 kg (120 lb) 01/11/2018 4:37 PM CLASS A REGIONAL TRUCK DRIVER Height 165.1 cm (5' 5) 01/11/2018 4:37 PM CLASS A REGIONAL TRUCK DRIVER Body Mass Index 19.97 01/11/2018 4:37 PM CLASS A REGIONAL TRUCK DRIVER Plan of Treatment Not on file Care Teams Armed Security Guard Relationship Specialty Start Date End Date No Ref-Primary, Physician PCP - General 01/11/18
== END 2024-07-09 07:51 | disposition home or self-care (01) ==
PROVIDERS: Emergency Provider Family Medicine; PCP Physician Assistant
DX: U07.1 COVID-19 (principal)
CPT/HCPCS: 87631; 99281; 99282; 99283

== ENCOUNTER 2024-10-22 08:39 | Outpatient (CLI) | payer OTHER, SELFPAY ==
--- OUTSIDE RECORDS SUMMARY | 2024-10-22 08:42 | XMS_ITS | Referral Summary ---
Author Organization [facility] Address [address] [place] [id number] Care Team Providers Care Kitchen Help Handyman Name Role Phone No Ref-Primary, Physician Primary Care Provider Allergies No known active allergies Social History Tobacco Use Types Packs/Day Years Used Date Smoking Tobacco: Never Assessed Adolescent Education Answer Date Record ed Getting School Help Needed Not on file 09/04 Comments No Sex and Gender Information Value Date Recorded Sex Assigned at Not on file Legal Sex Female 5:05 AM CUSTOM SHOEMAKER Gender Identity Not on file Sexual Orientation Not on file Last Filed Vital Signs Vital Sign Reading Time Taken Comments Blood Pressure 116/60 01/11/2018 4:37 PM CUSTOM SHOEMAKER Pulse 81 01/11/2018 4:37 PM CUSTOM SHOEMAKER Temperature 37.1 C (98.7 F) 01/11/2018 4:37 PM CUSTOM SHOEMAKER Respiratory Rate 18 01/11/2018 4:37 PM CUSTOM SHOEMAKER Oxygen Saturation 98% 01/11/2018 4:37 PM CUSTOM SHOEMAKER Inhaled Oxygen Concentration - - Weight 54.4 kg (120 lb) 01/11/2018 4:37 PM CUSTOM SHOEMAKER Height 165.1 cm (5' 5) 01/11/2018 4:37 PM CUSTOM SHOEMAKER Body Mass Index 19.97 01/11/2018 4:37 PM CUSTOM SHOEMAKER Plan of Treatment Not on file Insurance [employer] Care Teams Kitchen Help Handyman Relationship Specialty Start Date End Date No Ref-Primary, Physician PCP - General 01/11/18
--- OUTSIDE RECORDS SUMMARY | 2024-10-22 08:42 | XMS_ITS | Clinical Summary ---
Author Organization [facility] Address [address] [place] [address] Care Team Providers Care Outboard Motor Mechanic Name Role Phone No Ref-Primary, Physician Primary Care Provider Allergies No known active allergies Social History Tobacco Use Types Packs/Day Years Used Date Smoking Tobacco: Never Assessed Adolescent Education Answer Date Record ed Getting School Help Needed Not on file 09/04 Comments No Sex and Gender Information Value Date Recorded Sex Assigned at Not on file Legal Sex Female 5:05 AM MEDICATION CARE MANAGER Gender Identity Not on file Sexual Orientation Not on file Last Filed Vital Signs Vital Sign Reading Time Taken Comments Blood Pressure 116/60 01/11/2018 4:37 PM MEDICATION CARE MANAGER Pulse 81 01/11/2018 4:37 PM MEDICATION CARE MANAGER Temperature 37.1 C (98.7 F) 01/11/2018 4:37 PM MEDICATION CARE MANAGER Respiratory Rate 18 01/11/2018 4:37 PM MEDICATION CARE MANAGER Oxygen Saturation 98% 01/11/2018 4:37 PM MEDICATION CARE MANAGER Inhaled Oxygen Concentration - - Weight 54.4 kg (120 lb) 01/11/2018 4:37 PM MEDICATION CARE MANAGER Height 165.1 cm (5' 5) 01/11/2018 4:37 PM MEDICATION CARE MANAGER Body Mass Index 19.97 01/11/2018 4:37 PM MEDICATION CARE MANAGER Plan of Treatment Not on file Insurance [employer] Care Teams Outboard Motor Mechanic Relationship Specialty Start Date End Date No Ref-Primary, Physician PCP - General 01/11/18
--- OUTSIDE RECORDS SUMMARY | 2024-10-22 08:42 | XMS_ITS | Clinical Summary ---
Author Organization [facility] Address [place], [place] [address] Care Team Providers Care Audio Visual Design Engineer Name Role Phone Pcp, No Primary Care Provider Unavailabl e Allergies Active Allergy Reactions Criticality Noted Date Comments Amoxicillin Vomiting 04/27/2024 Medications Medication Sig Dispensed Refills Start Date End Date Status INTRAUTERINE DEVICE, IUD, IU Inject intrauterine. 08/27/2022 Active Active Problems No known active problems Immunizations Name Administration Dates Next Due COVID-19 vaccine ([employer] NTech 30mcg/0.3mL) PF, MDV 04/13/2021 DTaP 08/31/2003, 8,1997,10/01 HIB-HepB (Comvax) 02/21/1998,1997 [...] 2 04/27/2024 Social Connections Answer Date Recorded Do you often feel lonely or isolated from those around you? 0 04/27/2024 Alcohol Use Answer Date Recorded [...] 1 04/27/2024 Food Insecurity Answer Date Recorded Do you worry your food will run out before you are able to buy more? 2 04/27/2024 Transportation Needs Answer Date Record ed Does lack of transportation keep you from medica l appointments? 1 04/27/2024 Does lack of transportation keep you from work, meetings or getting things that you need? 1 04/27/2024 Housing Stability Answer Date Recorded What is your housing situation today? 1 04/27/2024 Sex and Gender Information Value Date Recorded Sex Assigned at Not on file Gender Identity Not on file Sexual Orientation Not on file Obstetrics History Last Filed Vital Signs Vital Sign Reading Time Taken Comments Blood Pressure 118/73 04/27/2024 3:05 PM CDT Pulse 74 04/27/2024 3:05 PM CDT Temperature 37.1 C (98.8 F) 01/11/2018 4:07 PM ORNAMENTAL METAL FABRICATOR APPRENTICE Respiratory Rate 16 01/11/2018 4:07 PM ORNAMENTAL METAL FABRICATOR APPRENTICE Oxygen Saturation 100% 04/27/2024 3:05 PM CDT [...] 18-79 2015 COVID-19 vaccine series ( season) 2024 04/13/2021 Influenza for age 9-49 07/19/2024 BMI (ht and wt on same day) for age 18+ 04/27/2025 04/27/2024, 01/11/2018 Depression screening for age 12+ 04/27/2025 04/27/2024, 01/08/2020 Pap test for age 21-65 09/25/2025 2, 09/25/2022 Tetanus booster 06/18/2032 06/18/2022 Tdap Completed 06/18/2022 Pneumococcal series for age 6-64 Aged Out No longer eligible b ased on patient's age to complete this topic Procedures Procedure Name Priority Date/Time Associated Diagnosis Comments HPV HIGH RISK Routine 09/25/2022 1:00 PM ORNAMENTAL METAL FABRICATOR APPRENTICE from Last 3 Months or Most Recently Relevant to Health Maintenance Results * HPV HIGH RISK (09/25/2022 1:00 PM ORNAMENTAL METAL FABRICATOR APPRENTICE) TYPE 16 Negative Negative 09/29/2022 12:43 PM ORNAMENTAL METAL FABRICATOR APPRENTICE [facility] TYPE 18 Negative Negative 09/29/2022 12:43 PM ORNAMENTAL METAL FABRICATOR APPRENTICE [facility] OTHER HIGH RISK TYPES Negative Negative 09/29/2022 12:43 PM ORNAMENTAL METAL FABRICATOR APPRENTICE [facility] Other (Cervical) 09/25/2022 1:00 PM ORNAMENTAL METAL FABRICATOR APPRENTICE 09/27/2022 2:09 PM ORNAMENTAL METAL FABRICATOR APPRENTICE Narrative [facility] - 09/29/2022 12:43 PM ORNAMENTAL METAL FABRICATOR APPRENTICE HPV types 16, 18, 31, 33, 35, 39, 45, 51, 52, 56, 58, 59, 66 and 68 DNA were undetectable or below the pre-set threshold. Methodology: Gideon Duke 4800 HPV Test February Damion LENZ MICROBIOLOGY [facility] [address] [place] [address], from Last 3 Months or Most Recently Relevant to Health Maintenance Care Teams Audio Visual Design Engineer Relationship Specialty Start Date End Date Pcp, No . PCP - General 01/11/18
== END 2024-10-22 08:40 | disposition home or self-care (01) ==
PROVIDERS: PCP Registered Nurse; Visit Provider Registered Nurse
DX: Z13.6 Encounter for screening for cardiovascular disorders (principal); Z13.29 Encounter for screening for other suspected endocrine disorder; Z13.0 Encounter for screening for diseases of the blood and blood-forming organs and certain disorders involving the immune mechanism; Z13.820 Encounter for screening for osteoporosis
CPT/HCPCS: 80053; 80061; 82306; 84443